=== PATIENT | male | born 1970 | race Caucasian/White ===

== ENCOUNTER 2020-10-24 08:01 | Day surgery (SDC) | payer BC, SELFPAY ==
[~2020-10-24] VITALS: Ht 177.8 cm; Wt 104.9 kg
[~2020-10-24 08:01] MED LIST: CYCL10 PO; DESL5 PO; INSUASPI; INSULANI; LISI5 PO; MED FOR NEUROPATHY; MONT10T PO; ONDA4ODT MM; OXYACE5T PO; QUIN5; RXPROM25 PO; [UNRECOGNIZED DRUG - OTHER]; [UNRECOGNIZED DRUG - REMARK]
[2020-10-24] MEDS ORDERED: ASPI81CH (08:19)
--- NOTE | 2020-10-24 08:44 | NUR ---
10/24/20 0844 Bobbi Trinh 1 TRY RIGHT HAND BLEW
== END 2020-10-24 09:48 | disposition home or self-care (01) ==
LOC: ORSCSDS 08:01
PROVIDERS: Surgery
PROC: 0DJD8ZZ Inspection of Lower Intestinal Tract, Via Natural or Artificial Opening Endoscopic (ICD-10-PCS; principal; 2020-10-24 09:15)
DX: Z12.11 Encounter for screening for malignant neoplasm of colon (principal); F32.9 Major depressive disorder, single episode, unspecified; E66.9 Obesity, unspecified; Z68.35 Body mass index [BMI] 35.0-35.9, adult; Z79.82 Long term (current) use of aspirin; Z79.899 Other long term (current) drug therapy
CPT/HCPCS: 82947; J2704; J7120

== ENCOUNTER 2020-11-15 08:27 | Observation (INO) | payer BC, SELFPAY ==
[~2020-11-15] VITALS: Ht 177.8 cm; Wt 111.9 kg
[~2020-11-15 08:27] MED LIST changes: +ASPIR 8181 M1 PO; +LISI20 PO; -LISI5 PO
[2020-11-15 09:11] LABS: BASOPHILS ABSOLUTE AUTO 0.04 K/mm3 (0.00-0.23); BASOPHILS PERCENT AUTO 0 % (0-2); EOSINOPHILS ABSOLUTE AUTO 0.16 K/mm3 (0.00-0.68); EOSINOPHILS PERCENT AUTO 2 % (0-6); Hematocrit 37.9 % (37.0-53.0); IMMATURE GRAN ABSOLUTE AUTO 0.02 K/mm3 (0.00-0.10); IMMATURE GRAN PERCENT AUTO 0 % (0-1); LYMPHOCYTES ABSOLUTE AUTO 1.74 K/mm3 (0.84-5.20); LYMPHOCYTES PERCENT AUTO 18 % (21-46); MONOCYTES ABSOLUTE AUTO 0.76 K/mm3 (0.16-1.47); MONOCYTES PERCENT AUTO 8 % (4-13); Mean Corpuscular HGB 31.4 pg (26.0-34.0); Mean Corpuscular HGB Conc 34.3 g/dL (31.5-36.5); Mean Corpuscular Volume 92 fL (80-100); Mean Platelet Volume 10.3 fL (9.1-12.4); NEUTROPHILS ABSOLUTE AUTO 7.01 K/mm3 (1.96-9.15); NEUTROPHILS PERCENT AUTO 72 % (41-73); Platelet Count 272 K/mm3 (150-400); RDW Coefficient Variation 12.3 % (11.7-14.2); RDW Standard Deviation 41.1 fL (35.1-46.3); Red Blood Cell Count 4.14 M/mm3 (4.30-5.90); White Blood Cell Count 9.73 K/mm3 (4.00-11.30)
[2020-11-15] MEDS ORDERED: ATOR10 PO (09:14)
[2020-11-15] MEDS ORDERED: MULVITA PO (09:15)
[2020-11-15] MEDS ORDERED: C COMPLEX1000 M1 PO (09:15)
[2020-11-15] MEDS ORDERED: ESCI10 PO (09:15)
[2020-11-15 09:26] LABS: Alanine Aminotransfer (ALT/SGP 35 U/L (12-78); Albumin, Blood 3.3 g/dL (3.4-5.0); Albumin/Globulin Ratio 1.1 (0.8-1.8); Alk Phos 131 U/L (50-136); Anion Gap 2 mmol/L (6-16); Aspartate Aminotrans (AST/SGOT 25 U/L (12-37); Bilirubin, Total 0.7 mg/dL (0.1-1.0); Blood Urea Nitrogen 19 mg/dL (8-24); Bun/Creatinine Ratio 18.4 (12.0-20.0); CO2, Blood 27 mmol/L (21-32); Calcium, Blood 8.6 mg/dL (8.5-10.1); Chloride, Blood 113 mmol/L (98-108); Creatinine, Blood 1.03 mg/dL (0.60-1.20); Globulin, Blood 3.1 g/dL (2.2-4.0); Glomerular Filtration Rate >60 (60-); Glucose, Blood 238 mg/dL (70-99); Potassium, Blood 5.3 mmol/L (3.5-5.5); Sodium, Blood 142 mmol/L (136-145); Total Protein, Blood 6.4 g/dL (6.4-8.2); Troponin I 0.021 ng/mL (0.000-0.040)
[2020-11-15 09:50] LABS: CPK Creatine Kinase 89 U/L (39-308)
[2020-11-15 11:40] LABS: SARS-Cov-2 (COVID-19) PCR, MMC NEGATIVE (NEGATIVE)
[2020-11-15] MEDS ORDERED: INSULIN LI100 UNIT/5 (12:37)
== END 2020-11-15 18:22 | disposition home or self-care (01) ==
LOC: ER 08:27 → ERHOLD 08:28 → ER 10:29 → ERHOLD 10:29
PROVIDERS: Emergency Medicine; ADMIT Internal Medicine Cardiovascular Disease
DX: I44.2 Atrioventricular block, complete (principal); I49.5 Sick sinus syndrome; I10 Essential (primary) hypertension; E11.9 Type 2 diabetes mellitus without complications; Z79.4 Long term (current) use of insulin; E66.9 Obesity, unspecified; Z68.35 Body mass index [BMI] 35.0-35.9, adult; Z88.5 Allergy status to narcotic agent; Z20.822 Contact with and (suspected) exposure to COVID-19; Z86.16 Personal history of COVID-19
CPT/HCPCS: 33208; 36415; 71045; 71046; 80053; 82550; 83690; 84484; 85025; 93005; 93010; 96374; 96375; 99152; 99153; 99285-25; A9270; C1785; C1898; C8929; G0378; J0461; J0690; J1170; J1580; J1644; J2250; J2405; J3010; J3370; J7030; J7040; Q9957; U0004

== ENCOUNTER 2020-11-25 13:36 | Inpatient (IN) | payer BC, SELFPAY ==
[~2020-11-25] VITALS: Ht 177.8 cm; Wt 105.6 kg
[~2020-11-25 13:36] MED LIST changes: +ATOR10 PO; +C COMPLEX1000 M1 PO; +ESCI10 PO; +INSULIN LI100 UNIT/5; +MULVITA PO
[2020-11-25] MEDS ORDERED: METO25 (14:25)
[2020-11-25 14:39] LABS: BASOPHILS ABSOLUTE AUTO 0.05 K/mm3 (0.00-0.23); BASOPHILS PERCENT AUTO 1 % (0-2); EOSINOPHILS ABSOLUTE AUTO 0.23 K/mm3 (0.00-0.68); EOSINOPHILS PERCENT AUTO 3 % (0-6); Hematocrit 40.4 % (37.0-53.0); Hemoglobin 14.3 g/dL (13.5-17.5); IMMATURE GRAN ABSOLUTE AUTO 0.01 K/mm3 (0.00-0.10); IMMATURE GRAN PERCENT AUTO 0 % (0-1); LYMPHOCYTES PERCENT AUTO 28 % (21-46); MONOCYTES ABSOLUTE AUTO 0.83 K/mm3 (0.16-1.47); MONOCYTES PERCENT AUTO 10 % (4-13); Mean Corpuscular HGB 31.2 pg (26.0-34.0); Mean Corpuscular HGB Conc 35.4 g/dL (31.5-36.5); Mean Corpuscular Volume 88 fL (80-100); Mean Platelet Volume 9.9 fL (9.1-12.4); NEUTROPHILS ABSOLUTE AUTO 4.89 K/mm3 (1.96-9.15); NEUTROPHILS PERCENT AUTO 59 % (41-73); Platelet Count 320 K/mm3 (150-400); RDW Coefficient Variation 12.4 % (11.7-14.2); RDW Standard Deviation 39.6 fL (35.1-46.3); Red Blood Cell Count 4.58 M/mm3 (4.30-5.90); White Blood Cell Count 8.31 K/mm3 (4.00-11.30)
[2020-11-25 14:49] LABS: Alanine Aminotransfer (ALT/SGP 54 U/L (12-78); Albumin, Blood 3.5 g/dL (3.4-5.0); Albumin/Globulin Ratio 1.1 (0.8-1.8); Alk Phos 130 U/L (50-136); Anion Gap 1 mmol/L (6-16); Aspartate Aminotrans (AST/SGOT 43 U/L (12-37); Bilirubin, Total 0.5 mg/dL (0.1-1.0); Blood Urea Nitrogen 19 mg/dL (8-24); Bun/Creatinine Ratio 17.9 (12.0-20.0); CO2, Blood 30 mmol/L (21-32); Calcium, Blood 8.9 mg/dL (8.5-10.1); Chloride, Blood 111 mmol/L (98-108); Creatinine, Blood 1.06 mg/dL (0.60-1.20); Globulin, Blood 3.3 g/dL (2.2-4.0); Glomerular Filtration Rate >60 (60-); Glucose, Blood 186 mg/dL (70-99); Potassium, Blood 4.7 mmol/L (3.5-5.5); Sodium, Blood 142 mmol/L (136-145); Total Protein, Blood 6.8 g/dL (6.4-8.2); Troponin I <0.015 ng/mL (0.000-0.040)
[2020-11-25 22:23] LABS: SARS-Cov-2 (COVID-19) PCR, MMC NEGATIVE (NEGATIVE)
--- NOTE | 2020-11-25 22:30 | NUR ---
PATIENT A/OX3. STATES THAT HE WAS AT [facility] THIS AM AND JUST "WOKE UP ON THE GROUND". STATES THAT HE DOES NOT REMEMBER PASSING OUT. HE HAD A PACEMAKER PLACED 11/15/20. TRANSFERRED FROM ED [facility] TO BED WITH SBA, DENIED DIZZINESS, LIGHTHEADEDNESS, AND CHEST PAIN. PACED ON TELE IN THE 80'S. STERI STRIPS TO LEFT UPPER CHEST ARE INTACT. INCISION TO LEFT UPPER CHEST IS WELL APPROXIMATED WITH RED SKIN AROUND SITE WHERE LARGE TEGADERM WAS REMOVED. STATES STERI STRIPS WERE PLACED AT DOCTORS OFFICE YESTERDAY. HAS INSULIN PUMP AND CONTINUOUS GLUCOSE MONITOR TO RIGHT LOWER ABDOMEN. STATES HE HAS BEEN USING THE INSULIN PUMP SINCE 2011. STATES IT IS HUMALOG WITH A CONTINUOUS RATE OF 2.7 UNITS/HR AND THAT HE COVERS HIS MEALS WITH 1 UNIT PER 6 CARBS. DISCUSSED POC FOR SHIFT. CALL LIGHT IN REACH.
--- NOTE | 2020-11-25 23:30 | NUR ---
PATIENT SIGNED PATIENT AGREEMENT FOR USE OF PATIENT OWNED INSULIN PUMP.
--- NOTE | 2020-11-26 01:20 | NUR ---
CALLED DR. ROBLEDO. NOTIFIED HIM PATIENT HAS HIS OWN INSULIN PUMP AND ASKED IF IT WAS OK IF PATIENT USED IT. DR. ROBLEDO ORDERED TO CONSULT HOSPITALIST. CALLED DR. BRIDGES AND NOTIFIED HER OF CONSULTATION AND INSULIN PUMP. SHE STATED SHE WOULD COME UP TO SEE THE PATIENT.
--- NOTE | 2020-11-26 01:35 | NUR ---
DR. BRIDGES AT BEDSIDE TO DISCUSS POC WITH PATIENT. PATIENT HAS INSULIN PUMP WITH HUMALOG, CONTINUOUS RATE OF 2.7 UNITS/HR AND COVERS MEALS WITH 1 UNIT PER 6 CARBS. PATIENT IS NPO FOR PROCEDURE IN AM. DR. BRIDGES ASKED PATIENT TO TURN OFF CONTINUOUS RATE HE IS NPO. PATIENT SUSPENDED CONTINUOUS RATE, I SAW THE SETTINGS ON HIS PUMP. SHE ORDERED FOR LOW SLIDING SCALE INSULIN BUT ORDERED TO NOT GIVE INSULIN UNLESS CBG IS >200.
[2020-11-26 06:15] LABS: BASOPHILS ABSOLUTE AUTO 0.05 K/mm3 (0.00-0.23); BASOPHILS PERCENT AUTO 1 % (0-2); EOSINOPHILS PERCENT AUTO 3 % (0-6); Hematocrit 38.7 % (37.0-53.0); Hemoglobin 13.5 g/dL (13.5-17.5); IMMATURE GRAN ABSOLUTE AUTO 0.02 K/mm3 (0.00-0.10); IMMATURE GRAN PERCENT AUTO 0 % (0-1); LYMPHOCYTES ABSOLUTE AUTO 1.99 K/mm3 (0.84-5.20); LYMPHOCYTES PERCENT AUTO 26 % (21-46); MONOCYTES ABSOLUTE AUTO 0.67 K/mm3 (0.16-1.47); MONOCYTES PERCENT AUTO 9 % (4-13); Mean Corpuscular HGB Conc 34.9 g/dL (31.5-36.5); Mean Corpuscular Volume 89 fL (80-100); Mean Platelet Volume 9.6 fL (9.1-12.4); NEUTROPHILS ABSOLUTE AUTO 4.85 K/mm3 (1.96-9.15); NEUTROPHILS PERCENT AUTO 62 % (41-73); Platelet Count 269 K/mm3 (150-400); RDW Coefficient Variation 12.1 % (11.7-14.2); RDW Standard Deviation 38.6 fL (35.1-46.3); Red Blood Cell Count 4.35 M/mm3 (4.30-5.90); White Blood Cell Count 7.78 K/mm3 (4.00-11.30)
[2020-11-26 06:56] LABS: Anion Gap 6 mmol/L (6-16); Blood Urea Nitrogen 22 mg/dL (8-24); CO2, Blood 27 mmol/L (21-32); Chloride, Blood 106 mmol/L (98-108); Glomerular Filtration Rate >60 (60-); Glucose, Blood 290 mg/dL (70-99); Potassium, Blood 5.3 mmol/L (3.5-5.5); Sodium, Blood 139 mmol/L (136-145)
--- NOTE | 2020-11-26 07:40 | NUR ---
SHIFT SUMMARY: NEW ADMIT THIS SHIFT. A/OX3. TELE HAS SHOWN PACED RHYTHM. HAS DENIED DIZZINESS, LIGHTHEADEDNESS, AND CHEST PAIN. UP WITH SBA TO BATHROOM. INCISION TO LEFT UPPER CHEST WALL WITH STERI STRIPS. NPO SINCE MIDNIGHT. PLAN IS FOR PACEMAKER REVISION TODAY. PATIENT'S INSULIN PUMP OFF AT THIS TIME PER MD ORDER, COVERING WITH OUR SLIDING SCALE AT THIS TIME. REPORT GIVEN TO ONCOMING RN.
--- NOTE | 2020-11-26 10:41 | NUR ---
[facility]ED [facility] AT 1030 VIA HOSPITAL BED. 2 RN FOR TRANSFER. PT LEFT ON RA. CEFAZOLIN STOPPED AT THE TME OF TRANSFER. FULL DOSE GIVEN BEFORE DEPARTURE.
--- NOTE | 2020-11-26 14:41 | NUR ---
PT ARRIVED FROM [facility] AT 1249 VIA HOSPITAL BED. REPORT GIVEN AT BEDSIDE BY MEENAKSHI ESPINOZA. RIGHT ENTRY POINT AT THE NECK WNL. LEFT ENTRY POINT WNL. NO C/O PAIN. THIS RN CALLED PT'S TO HAVE INSULIN PUMP MAINENACE SUPPLIES DELIVERED AT 1415. PT'S DELIVERED SUPPLIES AT 1437. PT TURNED ON INSULIN PUMP AT 1400; WITNESSED BY THIS RN AND NITIN ESPINOZA.
--- NOTE | 2020-11-26 19:36 | NUR ---
SHIFT SUMMARY A/O X4 AND COOPERATIVE OF CARE. PT 100% PACED AT 70-90'S. PT INSULIN PUMP TURNED ON, SEE NOTES AT 1441. VSS THROUGHOUT SHIFT. PT UP TO BATHROOM TO USE THE URINAL MULTIPLE TIMES, TOLERATED WELL. O2 SATS >92% ON RA THROUGHOUT SHIFT. PT DENIED CHEST PAIN/PRESSURE THROUGHOUT SHIFT.
[2020-11-27 03:49] LABS: BASOPHILS ABSOLUTE AUTO 0.05 K/mm3 (0.00-0.23); BASOPHILS PERCENT AUTO 0 % (0-2); EOSINOPHILS ABSOLUTE AUTO 0.09 K/mm3 (0.00-0.68); EOSINOPHILS PERCENT AUTO 1 % (0-6); Hemoglobin 14.4 g/dL (13.5-17.5); IMMATURE GRAN ABSOLUTE AUTO 0.05 K/mm3 (0.00-0.10); IMMATURE GRAN PERCENT AUTO 0 % (0-1); LYMPHOCYTES ABSOLUTE AUTO 1.69 K/mm3 (0.84-5.20); LYMPHOCYTES PERCENT AUTO 13 % (21-46); MONOCYTES ABSOLUTE AUTO 0.82 K/mm3 (0.16-1.47); MONOCYTES PERCENT AUTO 6 % (4-13); Mean Corpuscular HGB 31.5 pg (26.0-34.0); Mean Corpuscular Volume 88 fL (80-100); Mean Platelet Volume 9.6 fL (9.1-12.4); NEUTROPHILS ABSOLUTE AUTO 10.75 K/mm3 (1.96-9.15); NEUTROPHILS PERCENT AUTO 80 % (41-73); Platelet Count 282 K/mm3 (150-400); RDW Standard Deviation 37.8 fL (35.1-46.3); Red Blood Cell Count 4.57 M/mm3 (4.30-5.90); White Blood Cell Count 13.45 K/mm3 (4.00-11.30)
[2020-11-27 04:06] LABS: Anion Gap 8 mmol/L (6-16); Blood Urea Nitrogen 23 mg/dL (8-24); Bun/Creatinine Ratio 23.4 (12.0-20.0); CO2, Blood 26 mmol/L (21-32); Calcium, Blood 8.8 mg/dL (8.5-10.1); Chloride, Blood 105 mmol/L (98-108); Creatinine, Blood 0.98 mg/dL (0.60-1.20); Glomerular Filtration Rate >60 (60-); Glucose, Blood 236 mg/dL (70-99); Sodium, Blood 139 mmol/L (136-145)
--- NOTE | 2020-11-27 05:50 | NUR ---
CHAINSTITCH SEAT JOINER SUMMARY PT IS AXOX 4. PT HAS REMAINED VENTRICULAR PACED IN THE 90'S ALL SHIFT. BP'S HAVE BEEN ELEVATED W SBP IN THE 160'S, PRN HYDRALAZINE GIVEN X2 THIS SHIFT. PT HAS HAD C/O MODERATE SORENESS ON HIS LCW THIS SHIFT SO ONE TIME ORDER FOR TRAMADOL WAS RECIEVED W RELIEF THE TYLENOL DID NOT HELP MUCH PER PT. O2 SATS >92% ON RM AIR. PT ABLE TO AMBULATE TO BATHROOM UNASSISTED W NO REPORTS OF DIZZINESS OR FEELING LIGHTHEADED. EKG DONE AND IN FRONT OF CHART. WILL REPORT TO ONCOMING RN.
--- NOTE | 2020-11-27 10:19 | NUR ---
PATIENT ALERT AND ORIENTED X4. ON ROOM AIR. TELE SHOWING 100% PACED. HR 80'S. VITAL SIGNS STABLE. ARM SLING IN PLACE. POST PACER REVISION PRECAUTIONS DISCUSSED. DRESSING CLEAN/DRY/INTACT. COMPLAINS OF LEFT SHOUDLER SORENESS. DENIES NUMBNESS/TINGLING. BOWEL TONES PRESENT. USING URINAL IN BATHROOM. 1 SBA FOR SAFETY. CALL LIGHT IN REACH. DENIES NEEDS AT THIS TIME. WILL CONTINUE TO MONITOR.
[2020-11-27] MEDS ORDERED: METO25ER PO (12:21)
[2020-11-27] MEDS ORDERED: CEPH500 PO (12:33)
--- NOTE | 2020-11-27 14:30 | NUR ---
DISCHARGE: DISCHARGE WNL. PACER PRECAUTIONS REVIEWED. DISCHARGE INSTRUCTIONS REVIEWED AND QUESTIONS ANSWERED. IV TAKEN OUT PER PROTOCOL. VITAL SIGNS STABLE. IN TO PICK PATIENT UP, PATIENT LEFT UNIT WITH ALL PERSONAL BELONGINGS VIA WHEELCHAIR. ARM SLING IN PLACE.
== END 2020-11-27 13:55 | disposition home or self-care (01) | DRG 261 ==
LOC: ER 13:36 → PCU 18:57 → ERHOLD 18:57 → PCU 21:51
PROVIDERS: Family Medicine; Student in an Organized Health Care Education/Training Program; ADMIT Internal Medicine Cardiovascular Disease
PROC: 4B02XSZ Measurement of Cardiac Pacemaker, External Approach (ICD-10-PCS; 2020-11-25)
PROC: 02WA3MZ Revision of Cardiac Lead in Heart, Percutaneous Approach (ICD-10-PCS; principal; 2020-11-26)
DX: T82.110A Breakdown (mechanical) of cardiac electrode, initial encounter (principal); I44.2 Atrioventricular block, complete; E10.9 Type 1 diabetes mellitus without complications; Z90.49 Acquired absence of other specified parts of digestive tract; Z98.890 Other specified postprocedural states; I10 Essential (primary) hypertension; Z79.899 Other long term (current) drug therapy; Z79.82 Long term (current) use of aspirin; Z79.4 Long term (current) use of insulin; I50.814 Right heart failure due to left heart failure; Z88.5 Allergy status to narcotic agent; I49.5 Sick sinus syndrome
CPT/HCPCS: 33210; 33215; 36415; 71045; 71046; 80048; 80053; 82947; 84484; 85025; 93005; 93010; 99152; 99153; 99285-25; A9270; C1781; C1894; J0360; J0690; J1644; J1815; J2250; J3010; J7030; J7040; U0004

== ENCOUNTER 2021-09-13 05:55 | Day surgery (SDC) | payer BC ==
[~2021-09-13] VITALS: Ht 177.8 cm; Wt 108.0 kg
[~2021-09-13 05:55] MED LIST changes: +CEPH500 PO; +METO25; +METO25ER PO
[2021-09-13] MEDS ORDERED: XARELTO20 MG PO (06:31)
[2021-09-13] MEDS ORDERED: ENTRESTO 24 MG1 EAC3 PO (06:32)
[2021-09-13] MEDS ORDERED: SILD50TA PO (06:32)
[2021-09-13] MEDS ORDERED: SPIR25 PO (06:33)
[2021-09-13] MEDS ORDERED: FURO20 PO ×2 (09:18→10:11)
--- NOTE | 2021-09-13 09:45 | NUR ---
DR GALVAN IN ROOM TO SEE PT.
--- NOTE | 2021-09-13 09:55 | NUR ---
RIGHT RADIAL TR BAND SITE SOFT NON-TENDER WITH NO HEMATOMA, NO PUSATILE BLEEDING WITH WRIST BOARD IN PLACE. PT DENIES CHEST PAIN. CALL LIGHT IN REACH. PT ATE BREAKFAST AND CALL LIGHT IN REACH.
--- NOTE | 2021-09-13 10:52 | NUR ---
8 CC OF AIR REMOVED OVER 8 MIN OUT OF NOW DEFLATED RIGHT TR BAND; NO PULSATILE BLEEDING, NO HEMATOMA AND SOFT. DISCHARGE INSTRUCTIONS REVIEWED ALL QUESTIONS ANSWERED.
--- NOTE | 2021-09-13 11:11 | NUR ---
NO CHANGES TO R RAD DEFLATED TR BAND SITE.
--- NOTE | 2021-09-13 11:43 | NUR ---
DEFLATED RIGHT TR BAND WAS REMOVED AND POLYMEM PLACED OVER RIGHT RADIAL SITE AND WRIST BOARD IN PLACE; NO HEMATOMA, NO PULSATILE BLEEDING AND SOFT. 20 G IV DISCONTINUED FROM LEFT AC WITH INTACT CANNULA. PT ESCORTED OUT VIA WHEELCHAIR ESCORT.
== END 2021-09-13 11:45 | disposition home or self-care (01) ==
LOC: MHTC 05:55
DX: I42.0 Dilated cardiomyopathy (principal); I25.10 Atherosclerotic heart disease of native coronary artery without angina pectoris; I11.0 Hypertensive heart disease with heart failure; I50.20 Unspecified systolic (congestive) heart failure; E11.9 Type 2 diabetes mellitus without complications; G47.33 Obstructive sleep apnea (adult) (pediatric); I49.5 Sick sinus syndrome; Z95.0 Presence of cardiac pacemaker; Z88.5 Allergy status to narcotic agent; Z79.82 Long term (current) use of aspirin; Z79.4 Long term (current) use of insulin; Z79.899 Other long term (current) drug therapy
CPT/HCPCS: 76937; 93458; 99152; 99153; A9270; C1769; C1887; C1894; J1644; J1940; J2250; J3010; J7030; J7040; Q9967

== ENCOUNTER 2021-10-06 18:35 | Emergency (ER) | payer BC ==
[~2021-10-06] VITALS: Ht 177.8 cm; Wt 106.6 kg
[~2021-10-06 18:35] MED LIST changes: +ENTRESTO 24 MG1 EAC3 PO; +FURO20 PO; +SILD50TA PO; +SPIR25 PO; +XARELTO20 MG PO
[2021-10-06 19:11] LABS: BASOPHILS ABSOLUTE AUTO 0.03 K/mm3 (0.00-0.23); BASOPHILS PERCENT AUTO 0 % (0-2); EOSINOPHILS ABSOLUTE AUTO 0.09 K/mm3 (0.00-0.68); EOSINOPHILS PERCENT AUTO 1 % (0-6); Hematocrit 44.3 % (37.0-53.0); Hemoglobin 15.6 g/dL (13.5-17.5); IMMATURE GRAN ABSOLUTE AUTO 0.02 K/mm3 (0.00-0.10); IMMATURE GRAN PERCENT AUTO 0 % (0-1); LYMPHOCYTES ABSOLUTE AUTO 1.98 K/mm3 (0.84-5.20); LYMPHOCYTES PERCENT AUTO 24 % (21-46); MONOCYTES ABSOLUTE AUTO 0.56 K/mm3 (0.16-1.47); MONOCYTES PERCENT AUTO 7 % (4-13); Mean Corpuscular HGB 30.8 pg (26.0-34.0); Mean Corpuscular HGB Conc 35.2 g/dL (31.5-36.5); Mean Corpuscular Volume 87 fL (80-100); Mean Platelet Volume 9.8 fL (9.1-12.4); NEUTROPHILS ABSOLUTE AUTO 5.73 K/mm3 (1.96-9.15); NEUTROPHILS PERCENT AUTO 68 % (41-73); Platelet Count 297 K/mm3 (150-400); RDW Coefficient Variation 12.4 % (11.7-14.2); RDW Standard Deviation 39.4 fL (35.1-46.3); Red Blood Cell Count 5.07 M/mm3 (4.30-5.90); White Blood Cell Count 8.41 K/mm3 (4.00-11.30)
[2021-10-06 19:26] LABS: Albumin, Blood 3.8 g/dL (3.4-5.0); Albumin/Globulin Ratio 1.1 (0.8-1.8); Bilirubin, Total 0.4 mg/dL (0.1-1.0); Calcium, Blood 8.8 mg/dL (8.5-10.1); Creatinine, Blood 1.04 mg/dL (0.60-1.20); Globulin, Blood 3.4 g/dL (2.2-4.0); Total Protein, Blood 7.2 g/dL (6.4-8.2)
== END 2021-10-07 00:13 | disposition home or self-care (01) ==
LOC: ER 18:35
PROVIDERS: Student in an Organized Health Care Education/Training Program
DX: R07.9 Chest pain, unspecified (principal); E10.9 Type 1 diabetes mellitus without complications; I10 Essential (primary) hypertension; I44.2 Atrioventricular block, complete; Z95.0 Presence of cardiac pacemaker; Z88.5 Allergy status to narcotic agent; Z79.899 Other long term (current) drug therapy; Z79.4 Long term (current) use of insulin; Z79.01 Long term (current) use of anticoagulants
CPT/HCPCS: 71045; 80053; 83880; 84484; 85025; 93005; 93010

== ENCOUNTER 2021-11-21 15:26 | Observation (INO) | payer BC | END 2021-11-22 14:05 | disposition home or self-care (01) | LOC: ER 15:26 → PCU 15:27 | PROVIDERS: ADMIT Internal Medicine | DX: R55 Syncope and collapse (principal); E86.0 Dehydration; I11.0 Hypertensive heart disease with heart failure; I50.22 Chronic systolic (congestive) heart failure; E10.9 Type 1 diabetes mellitus without complications; Z88.5 Allergy status to narcotic agent; Z96.41 Presence of insulin pump (external) (internal); Z79.4 Long term (current) use of insulin; Z79.899 Other long term (current) drug therapy; Z95.0 Presence of cardiac pacemaker ==

== ENCOUNTER 2024-03-18 09:52 | Day surgery (SDC) | payer BC ==
[2024-03-18] VITALS (12 sets, daily range): BP systolic 118–149; BP diastolic 63–73
[~2024-03-18] VITALS: Ht 177.8 cm; Wt 104.8 kg
[~2024-03-18 09:52] MED LIST changes: +ENTRESTO 49 MG1 EACH PO; +FURO40 PO; +JARDIANCE10 MG PO; -METO25ER PO; +METO50ER PO; +VITAMIN D5000 UNIT PO
[2024-03-18] MEDS ORDERED: Acetaminophen 500 MG Tab PO SCH (10:35)
[2024-03-18] MEDS ORDERED: CeFAZolin Sodium 2,000 MG in NS 100 ML IV SCH (10:40)
[2024-03-18] MEDS ORDERED: Lactated Ringer's 1,000 ML IV SCH (10:40)
[2024-03-18] MEDS ORDERED: FentaNYL Citrate 50 MCG/ML 2 ML Injection ONE (11:19)
[2024-03-18] MEDS ORDERED: propofoL 40 ML IV ONE (11:19)
--- NOTE | 2024-03-18 11:31 | NUR ---
INTO SDS. PT A&OX4-REPORTS 5/10 LEFT FOOT PAIN. HISTORY AND ALLERGIES REVIEWED. PT HAS ICD-DENIES CP OR SOB. LUNGS CLEAR SATS>90% ON RA. NPO STATUS CONFIRMED. CHLORHEXIDINE SHOWER AND WIPE X 2-RIDE HOME CONFIRMED.
[2024-03-18] MEDS ORDERED: CeFAZolin Sodium 2,000 MG VIAL ONE (11:35)
--- NOTE | 2024-03-18 11:56 | NUR ---
PLAN SINGLE SHOT PERIPHERAL NERVE BLOCK; PT WOULD LIKE THIS.
--- NOTE | 2024-03-18 12:00 | NUR ---
TIME OUT FOR LEFT LEG POPLITEAL NERVE BLOCK. PT HAS SAO2 PROBE ON.
--- NOTE | 2024-03-18 12:11 | NUR ---
NERVE BLOCK COMPLETE.
[2024-03-18] MEDS ORDERED: propofoL 100 ML IV ONE (12:12)
[2024-03-18] MEDS ORDERED: Ropivacaine 0.5% HCL/PF 5 MG/ML 30ML Vial ONE (12:13)
[2024-03-18] MEDS ORDERED: Ondansetron HCl 2 MG / ML 2ML Vial ONE (12:28)
[2024-03-18] MEDS ORDERED: Ketorolac Tromethamine 30mg Vial ONE (12:29)
[2024-03-18] MEDS ORDERED: Bupivacaine 0.5% HCl 5 MG/ML 30MLVIAL ONE (13:30)
[2024-03-18] MEDS ORDERED: propofoL 20 ML IV ONE (13:34)
--- NOTE | 2024-03-18 14:27 | NUR ---
PT TOES ARE PINK, WARM AND DRY WITH CAP REFIL <3 SECONDS. PT IS ABLE TO WIGGLE TOES SLIGHTLY.
--- NOTE | 2024-03-18 14:27 | NUR ---
PT TO DAY SURGERY STEP DOWN FROM PACU; BEDSIDE REPORT RECEIVED. PT IS SLEEPING, BUT RESPONDS TO VOICE. PT HAS SPLINT COVERED IN VOLODYMYR WRAP TO LEFT FOOT UP TO UNDER KNEE; C/D/I. PT DENIES PAIN AT THIS TIME.
--- NOTE | 2024-03-18 14:55 | NUR ---
PT AWAKE, SANDWHICH AND PO FLUIDS GIVEN.
--- NOTE | 2024-03-18 15:04 | NUR ---
Discharge instructions reviewed with patient. Patient verbalizes understanding. Copy given to patient to take home. Ice pack to leg. Konstantin wrap remains c/d/i. Pt toes pink, warm and dry with cap refill <3 seconds.
--- NOTE | 2024-03-18 15:20 | NUR ---
Patient up to Ambulate independently; non weight bearing on left leg. Discharged via wheelchair to private car for ride home.
== END 2024-03-18 15:21 | disposition home or self-care (01) ==
LOC: ORSCMMR 09:52
PROVIDERS: Podiatrist Foot & Ankle Surgery
PROC: 0L8P0ZZ Division of Left Lower Leg Tendon, Open Approach (ICD-10-PCS; principal; 2024-03-18 11:15)
PROC: 0QBM0ZZ Excision of Left Tarsal, Open Approach (ICD-10-PCS; principal; 2024-03-18 11:15)
DX: M76.62 Achilles tendinitis, left leg (principal); I10 Essential (primary) hypertension; E10.9 Type 1 diabetes mellitus without complications; Z79.85 Long-term (current) use of injectable non-insulin antidiabetic drugs; Z79.4 Long term (current) use of insulin; E78.5 Hyperlipidemia, unspecified; I50.9 Heart failure, unspecified; Z95.0 Presence of cardiac pacemaker
CPT/HCPCS: 82947; A9270; C1713; J0690; J1885; J2405; J2704; J2795; J3010; J7120

== ENCOUNTER 2024-07-06 17:51 | Emergency (ER) | payer BC ==
[~2024-07-06] VITALS: Ht 177.8 cm; Wt 104.3 kg
[2024-07-06 18:58] LABS: BASOPHILS ABSOLUTE AUTO 0.04 K/mm3 (0.00-0.23); BASOPHILS PERCENT AUTO 0 % (0-2); EOSINOPHILS ABSOLUTE AUTO 0.22 K/mm3 (0.00-0.68); EOSINOPHILS PERCENT AUTO 2 % (0-6); Hematocrit 44.7 % (37.0-53.0); Hemoglobin 16.1 g/dL (13.5-17.5); IMMATURE GRAN ABSOLUTE AUTO 0.04 K/mm3 (0.00-0.10); IMMATURE GRAN PERCENT AUTO 0 % (0-1); LYMPHOCYTES ABSOLUTE AUTO 1.47 K/mm3 (0.84-5.20); LYMPHOCYTES PERCENT AUTO 15 % (21-46); MONOCYTES ABSOLUTE AUTO 0.66 K/mm3 (0.16-1.47); MONOCYTES PERCENT AUTO 7 % (4-13); Mean Corpuscular HGB 31.5 pg (26.0-34.0); Mean Corpuscular Volume 88 fL (80-100); Mean Platelet Volume 9.4 fL (9.1-12.4); NEUTROPHILS ABSOLUTE AUTO 7.48 K/mm3 (1.96-9.15); NEUTROPHILS PERCENT AUTO 76 % (41-73); Platelet Count 302 K/mm3 (150-400); RDW Coefficient Variation 12.3 % (11.7-14.2); RDW Standard Deviation 39.6 fL (35.1-46.3); Red Blood Cell Count 5.11 M/mm3 (4.30-5.90); White Blood Cell Count 9.91 K/mm3 (4.00-11.30)
[2024-07-06] MEDS ORDERED: Cyclobenzaprine HCl 10 MG Tab PO ONE (19:05)
[2024-07-06] MEDS ORDERED: Ketorolac Tromethamine 15mg Vial IV ONE (19:05)
[2024-07-06 19:19] LABS: Albumin, Blood 3.3 g/dL (3.4-5.0); Albumin/Globulin Ratio 1.1 (0.8-1.8); Bilirubin, Total 0.4 mg/dL (0.1-1.0); Bun/Creatinine Ratio 26.3 (12.0-20.0); Calcium, Blood 8.3 mg/dL (8.5-10.1); Creatinine, Blood 0.84 mg/dL (0.60-1.20); Globulin, Blood 3.1 g/dL (2.2-4.0); Potassium, Blood 4.3 mmol/L (3.5-5.5); Total Protein, Blood 6.4 g/dL (6.4-8.2)
[2024-07-06 20:01] VITALS: BP 154/76
[2024-07-06] MEDS ORDERED: NAPR500 PO (21:09)
[2024-07-06] MEDS ORDERED: CYCL10 PO (21:09)
== END 2024-07-06 22:20 | disposition home or self-care (01) ==
LOC: ER 17:51
PROVIDERS: Student in an Organized Health Care Education/Training Program
DX: M54.32 Sciatica, left side (principal); E10.9 Type 1 diabetes mellitus without complications; I10 Essential (primary) hypertension; Z79.899 Other long term (current) drug therapy; Z79.4 Long term (current) use of insulin; Z88.5 Allergy status to narcotic agent
CPT/HCPCS: 80053; 83735; 84484; 85025; 93005; 93010; 96374; 99284-25; A9270; J1885

== ENCOUNTER 2024-11-28 15:29 | Inpatient (IN) | payer BC ==
[~2024-11-28] VITALS: Ht 177.8 cm; Wt 102.6 kg
[2024-11-28] VITALS (21 sets, daily range): BP systolic 88–131; BP diastolic 51–92
[~2024-11-28 15:29] MED LIST changes: -JARDIANCE10 MG PO; +JARDIANCE25 MG PO; +NAPR500 PO
[2024-11-28 16:04] LABS: pH Blood Venous 7.05 (7.34-7.37)
[2024-11-28 16:12] LABS: BASOPHILS ABSOLUTE AUTO 0.08 K/mm3 (0.00-0.23); BASOPHILS PERCENT AUTO 0 % (0-2); EOSINOPHILS ABSOLUTE AUTO 0.00 K/mm3 (0.00-0.68); EOSINOPHILS PERCENT AUTO 0 % (0-6); Hematocrit 49.6 % (37.0-53.0); Hemoglobin 16.8 g/dL (13.5-17.5); IMMATURE GRAN ABSOLUTE AUTO 0.14 K/mm3 (0.00-0.10); IMMATURE GRAN PERCENT AUTO 1 % (0-1); LYMPHOCYTES ABSOLUTE AUTO 1.24 K/mm3 (0.84-5.20); LYMPHOCYTES PERCENT AUTO 6 % (21-46); MONOCYTES ABSOLUTE AUTO 0.85 K/mm3 (0.16-1.47); MONOCYTES PERCENT AUTO 4 % (4-13); Mean Corpuscular HGB Conc 33.9 g/dL (31.5-36.5); Mean Corpuscular Volume 93 fL (80-100); NEUTROPHILS ABSOLUTE AUTO 19.87 K/mm3 (1.96-9.15); NEUTROPHILS PERCENT AUTO 90 % (41-73); NRBC ABSOLUTE 0.00 K/mm3 (0.00-0.02); NRBC Auto 0.0 /100 WBC (0.0-0.2); Platelet Count 376 K/mm3 (150-400); RDW Coefficient Variation 12.0 % (11.7-14.2); RDW Standard Deviation 41.1 fL (35.1-46.3)
[2024-11-28] MEDS ORDERED: Insulin Human Regular 100 UNIT in NS 100 ML IV SCH (16:15)
[2024-11-28 16:47] LABS: Alanine Aminotransfer (ALT/SGP 44.0 U/L (12-78); Albumin, Blood 4.2 g/dL (3.4-5.0); Albumin/Globulin Ratio 1.2 (0.8-1.8); Anion Gap 29.0 mmol/L (3-11); Aspartate Aminotrans (AST/SGOT 33.0 U/L (12-37); Bilirubin, Total 0.9 mg/dL (0.1-1.0); Blood Urea Nitrogen 48.0 mg/dL (8-24); CO2, Blood 10.0 mmol/L (21-32); Calcium, Blood 9.0 mg/dL (8.5-10.1); Chloride, Blood 98.0 mmol/L (98-108); Creatinine, Blood 1.32 mg/dL (0.60-1.20); Globulin, Blood 3.4 g/dL (2.2-4.0); Glucose, Blood 456.0 mg/dL (70-99); Potassium, Blood 6.1 mmol/L (3.5-5.5); Sodium, Blood 131.0 mmol/L (136-145); Total Protein, Blood 7.6 g/dL (6.4-8.2)
[2024-11-28] MEDS ORDERED: NS 1,000 ML IV SCH (16:50)
[2024-11-28] MEDS ORDERED: Ondansetron HCl 2 MG / ML 2ML Vial IV PRN (17:50)
[2024-11-28] MEDS ORDERED: Metoclopramide HCl 5MG / ML 2ML Vial IV PRN (17:50)
[2024-11-28] MEDS ORDERED: Ketorolac Tromethamine 15mg Vial IV ONE (18:00)
[2024-11-28] MEDS ORDERED: Metoclopramide HCl 5MG / ML 2ML Vial IV ONE (18:00)
[2024-11-28 18:43] LABS: Source, Urine Clean Catch
[2024-11-28 19:03] LABS: Bilirubin, Urine Neg (Neg); Color, Urine Yellow (P-Yellow); Glucose Qualitative, Urine 4+ (Neg); Ketones, Urine 4+ (Neg); Leukocyte Esterase, Urine Neg (Neg); Protein, Urine 1+ (Neg); Specific Gravity, Urine 1.020 (1.003-1.022); Urobilinogen, Urine NORM (Normal)
[2024-11-28 19:37] LABS: U Amphetamine Screen Not Detected; U Barbituate Screen Not Detected; U Benzodiazapine Screen Not Detected; U Buprenorphine Screen Not Detected; U Cannabinoids Screen Not Detected; U Cocaine Screen Not Detected; U Methadone Screen Not Detected; U Methamphetamine Screen Not Detected; U Opiates Screen Not Detected; U Oxycodone Screen Not Detected; U Phencyclidine Screen Not Detected
--- NOTE | 2024-11-28 20:27 | NUR ---
TRANSFERED RECEIVED REPORT FROM KANE ESPINOZA [facility] ER. PATIENT ARRIVED TO ICU @1939.
[2024-11-28 20:37] LABS: Anion Gap 26.0 mmol/L (3-11); Blood Urea Nitrogen 54.0 mg/dL (8-24); CO2, Blood 10.0 mmol/L (21-32); Calcium, Blood 7.9 mg/dL (8.5-10.1); Chloride, Blood 103.0 mmol/L (98-108); Creatinine, Blood 1.44 mg/dL (0.60-1.20); Glucose, Blood 409.0 mg/dL (70-99); Potassium, Blood 5.0 mmol/L (3.5-5.5); Sodium, Blood 134.0 mmol/L (136-145)
[2024-11-28] MEDS ORDERED: Heparin Sodium,Porcine 5,000 UNIT/0.5 ML SDV SC SCH (21:00)
[2024-11-28] MEDS ORDERED: D5W-1/2NS 1,000 ML IV SCH (23:10)
[2024-11-29] VITALS (33 sets, daily range): BP systolic 90–143; BP diastolic 52–80
[2024-11-29 00:16] LABS: Anion Gap 23.0 mmol/L (3-11); Blood Urea Nitrogen 52.0 mg/dL (8-24); CO2, Blood 12.0 mmol/L (21-32); Calcium, Blood 8.1 mg/dL (8.5-10.1); Chloride, Blood 106.0 mmol/L (98-108); Creatinine, Blood 1.35 mg/dL (0.60-1.20); Glucose, Blood 268.0 mg/dL (70-99); Potassium, Blood 4.5 mmol/L (3.5-5.5); Sodium, Blood 136.0 mmol/L (136-145)
[2024-11-29 04:20] LABS: BASOPHILS ABSOLUTE AUTO 0.03 K/mm3 (0.00-0.23); BASOPHILS PERCENT AUTO 0 % (0-2); EOSINOPHILS ABSOLUTE AUTO 0.01 K/mm3 (0.00-0.68); EOSINOPHILS PERCENT AUTO 0 % (0-6); Hematocrit 42.8 % (37.0-53.0); Hemoglobin 14.8 g/dL (13.5-17.5); IMMATURE GRAN ABSOLUTE AUTO 0.06 K/mm3 (0.00-0.10); IMMATURE GRAN PERCENT AUTO 0 % (0-1); LYMPHOCYTES ABSOLUTE AUTO 2.15 K/mm3 (0.84-5.20); LYMPHOCYTES PERCENT AUTO 14 % (21-46); MONOCYTES ABSOLUTE AUTO 1.54 K/mm3 (0.16-1.47); MONOCYTES PERCENT AUTO 10 % (4-13); Mean Corpuscular HGB Conc 34.6 g/dL (31.5-36.5); Mean Corpuscular Volume 91 fL (80-100); NEUTROPHILS ABSOLUTE AUTO 12.13 K/mm3 (1.96-9.15); NEUTROPHILS PERCENT AUTO 76 % (41-73); NRBC ABSOLUTE 0.00 K/mm3 (0.00-0.02); NRBC Auto 0.0 /100 WBC (0.0-0.2); Platelet Count 298 K/mm3 (150-400); RDW Coefficient Variation 12.4 % (11.7-14.2); RDW Standard Deviation 41.2 fL (35.1-46.3)
[2024-11-29 04:36] LABS: Anion Gap 15.0 mmol/L (3-11); Blood Urea Nitrogen 48.0 mg/dL (8-24); CO2, Blood 18.0 mmol/L (21-32); Calcium, Blood 7.6 mg/dL (8.5-10.1); Chloride, Blood 103.0 mmol/L (98-108); Creatinine, Blood 1.31 mg/dL (0.60-1.20); Glucose, Blood 212.0 mg/dL (70-99); Potassium, Blood 4.1 mmol/L (3.5-5.5); Sodium, Blood 132.0 mmol/L (136-145)
--- NOTE | 2024-11-29 06:00 | NUR ---
SHIFT SUMMARY PATIENT SLEPT MOST OF SHIFT. A&O X4, WALKS AT BASELINE BUT WEAK. USES BEDSIDE URINAL INDEPENDENTLY. HR IN THE 70-80'S AND SBP 110-120'S. ON ROOM AIR. CLEAR LIQUID DIET, PER DR. AGRAWAL CAN GO TO C. CARBS IF TOLERATES CLEAR LIQUID THROUGH SHIFT. PATIENT HAS NO N/V ON SHIFT. RIGHT UPPER ARM AND RIGHT AC IVS. INSULIN DRIP RUNNING @3U D51/2 RUNNING @150MLS. BLOOD SUGAR Q 1 HOUR AND TITRATING TO PROTOCOL. CALL LIGHT WITHIN REACH.
[2024-11-29 08:29] LABS: Anion Gap 13.0 mmol/L (3-11); Blood Urea Nitrogen 46.0 mg/dL (8-24); CO2, Blood 20.0 mmol/L (21-32); Calcium, Blood 7.7 mg/dL (8.5-10.1); Chloride, Blood 106.0 mmol/L (98-108); Creatinine, Blood 1.32 mg/dL (0.60-1.20); Glucose, Blood 192.0 mg/dL (70-99); Potassium, Blood 4.1 mmol/L (3.5-5.5); Sodium, Blood 135.0 mmol/L (136-145)
[2024-11-29] MEDS ORDERED: Cholecalciferol 1000 Unit Tablet (=25MCG) PO SCH (09:00)
[2024-11-29 09:22] LABS: pH Blood Venous 7.32 (7.34-7.37)
--- NOTE | 2024-11-29 10:33 | NUR ---
ASSUMPTION OF CARE... BEDSIDE REPORT WITH FAUSTINO RN. PATIENT A&OX4 AND ABLE TO MAKE NEEDS KNOWN. PATIENT VENT PACED IN THE 60S-70S. BP STABLE WITH MAPS >65. PATIENT ON ROOM AIR WITH SATS >98%. L/S CLEAR THROUGHOUT. PATIENT USING URINAL IND WITH CLEAR YELLOW URINE OUT. PATIENT TOLERATING PO LIQUIDS. 20G PIV TO THE RIGHT AC AND 18G TO THE RIGHT UPPER ARM. D50 RUNNING AT 150ML/HR, INSULIN RUNNING AT 3 UNITS/HR. AT BEDSIDE.
--- NOTE | 2024-11-29 11:39 | NUR ---
PROVIDER CONTACT DR. SANTIAGO AT BEDSIDE. LABS DRAWN. PLAN TO RESTART PATIENT ON HOME INSULIN PUMP PENDING LAB RESULTS.
[2024-11-29 12:18] LABS: Anion Gap 12.0 mmol/L (3-11); Blood Urea Nitrogen 37.0 mg/dL (8-24); CO2, Blood 21.0 mmol/L (21-32); Calcium, Blood 7.8 mg/dL (8.5-10.1); Chloride, Blood 107.0 mmol/L (98-108); Creatinine, Blood 1.14 mg/dL (0.60-1.20); Glucose, Blood 250.0 mg/dL (70-99); Potassium, Blood 3.8 mmol/L (3.5-5.5); Sodium, Blood 136.0 mmol/L (136-145)
--- NOTE | 2024-11-29 12:25 | NUR ---
PROVIDER CONTACT... DR. SANTIAGO CONTACTED ABOUT BMP RESULTS. REPEAT ORDER FOR LABS PLACED. PATIENT TO REMAIN NPO AT THIS TIME PER DR. SANTIAGO.
--- NOTE | 2024-11-29 13:38 | NUR ---
PROVIDER CONTACT... THIS RN CALLED DR. SANTIAGO REGAURDING PATIENTS INCREASING BLOOD SUGAR AND LOW POTASSIUM. PENDING ORDERS.
--- NOTE | 2024-11-29 15:44 | NUR ---
1600 REASSESSMENT... PATIENT A&OX4 AND ABLE TO MAKE NEEDS KNOWN. VENT PACED WITH RATE IN THE 60S. BP STABLE WITH MAPS >65. PATIENT ON ROOM AIR WITH SATS >95%. L/S CLEAR THROUGHOUT. PATIENT USING URINAL IND WITH CLEAR YELLOW URINE OUT. NO BM THIS SHIFT. INSULIN INFUSING AT 1.5 UNITS/HR.
[2024-11-29 16:50] LABS: Anion Gap 8.0 mmol/L (3-11); Blood Urea Nitrogen 34.0 mg/dL (8-24); CO2, Blood 23.0 mmol/L (21-32); Calcium, Blood 8.4 mg/dL (8.5-10.1); Chloride, Blood 110.0 mmol/L (98-108); Creatinine, Blood 1.06 mg/dL (0.60-1.20); Glucose, Blood 216.0 mg/dL (70-99); Potassium, Blood 3.8 mmol/L (3.5-5.5); Sodium, Blood 137.0 mmol/L (136-145)
[2024-11-29] MEDS ORDERED: Insulin Pump Cartridge MISC SC SCH (17:15)
--- NOTE | 2024-11-29 17:38 | NUR ---
SHIFT SUMMARY... PATIENT A&OX4 AND CONTINUES TO BE ABLE TO MAKE NEEDS KNOWN. VENT PACED WITH HR IN THE 70S. BPS STABLE WITH MAPS >65. PATIENT ON RA WITH SATS >95%. PATIENT TRANSITIONED TO HOME INSULIN PUMP AND TOLERATING A CONSISTENT CARB DINNER. PATIENT MEDICATED WITH TYLENOL PER EMAR WITHOUT FUTHER COMPLAINTS OF PAIN. PATIENT CHANGED TO MED STATUS WITH TELEMETRY, AWAITING A BED.
[2024-11-30 04:34] VITALS: BP 125/65
--- NOTE | 2024-11-30 05:48 | NUR ---
PT A&OX4, INDEPENDENT IN RM, CALL LIGHT WITHIN REACH. PT SLEPT T/O THE NIGHT NO ACUTE CHANGES NOTED THIS SHIFT.
[2024-11-30 07:18] VITALS: BP 147/72
[2024-11-30 10:03] LABS: Anion Gap 4.0 mmol/L (3-11); Blood Urea Nitrogen 22.0 mg/dL (8-24); CO2, Blood 26.0 mmol/L (21-32); Calcium, Blood 8.2 mg/dL (8.5-10.1); Chloride, Blood 111.0 mmol/L (98-108); Creatinine, Blood 0.88 mg/dL (0.60-1.20); Glucose, Blood 133.0 mg/dL (70-99); Potassium, Blood 3.8 mmol/L (3.5-5.5); Sodium, Blood 137.0 mmol/L (136-145)
[2024-11-30] MEDS ORDERED: ENTRESTO 97 MG1 EAC3 PO (11:39)
--- NOTE | 2024-11-30 15:09 | NUR ---
DISCHARGE NOTE. PATIENT DISCHARGED TO HOME. BOTH IV'S REMOVED WITHOUT ISSUE. NO NEW MEDICATIONS FOR PATIENT. DISCHARGE PAPER WORK AND EDUCATION DONE WITH PATIENT. PATIENT HAS FOLLOW UP WITH PCP SCHEDULED. PATIENT WALKED TO EXIT BY RN STAFFL.
== END 2024-11-30 14:32 | disposition home or self-care (01) | DRG 638 ==
LOC: ER 15:29 → ICUE 15:30 → MEDS 11-29 18:37
PROVIDERS: Family Medicine; Nurse Practitioner Acute Care; Student in an Organized Health Care Education/Training Program; ADMIT Student in an Organized Health Care Education/Training Program
DX: E10.10 Type 1 diabetes mellitus with ketoacidosis without coma (principal); E87.1 Hypo-osmolality and hyponatremia; I44.2 Atrioventricular block, complete; I50.22 Chronic systolic (congestive) heart failure; N17.9 Acute kidney failure, unspecified; R65.10 Systemic inflammatory response syndrome (SIRS) of non-infectious origin without acute organ dysfunction; I11.0 Hypertensive heart disease with heart failure; E87.5 Hyperkalemia; Z79.4 Long term (current) use of insulin; Z79.84 Long term (current) use of oral hypoglycemic drugs; Z98.890 Other specified postprocedural states; Z79.899 Other long term (current) drug therapy; Z88.5 Allergy status to narcotic agent; Z88.8 Allergy status to other drugs, medicaments and biological substances; Z90.49 Acquired absence of other specified parts of digestive tract; Z95.0 Presence of cardiac pacemaker
CPT/HCPCS: 36415; 80048; 80053; 82010; 82803; 82947; 85025; 93005; 93010; 93306; 96361; 96372; 96374; 96375; 99285-25; A9270; G0378; J1644; J1815; J1885; J2765; J3480; J7030; J7042; J7120